=== PATIENT | female | born 1970 | race Caucasian/White ===

== ENCOUNTER 2016-08-16 15:34 | Emergency (ER) | payer OTHER ==
--- NOTE | ~2016-08-16 | EKG ---
PATIENT: DENNISE STEVENSON UNIT #: [id number] Ventricular Rate: 66 BPM Atrial Rate: 66 BPM P-R Interval: 134 ms QRS Duration: 86 ms Q-T Interval: 410 ms QTC Calculation(Bezet): 429 ms P [place]: 32 degrees Calculated R [place]: 11 degrees Calculated T [place]: 16 degrees Diagnosis Line: Normal sinus rhythm Diagnosis Line: Normal ECG Diagnosis Line: When compared with ECG of 18-MAR-2015 19:02, Diagnosis Line: No significant change was found Diagnosis Line: Confirmed by JAYLIN LO MD ([id number]) on Diagnosis Line: 08/19/2016 11:03:14 AM INTERPRETING MD: WALLY MCCLURE
[~2016-08-16 15:34] MED LIST: ALBUTEROL17 GM INH; BENZONATATE; CIPRO PO; COGENTIN1 MG; DESYREL100 MG; GARLIC100 MG PO; GEODON60 MG; MEDROL4 MG/DOSE- PO; MUCINEX DM ER1 EAC1; MULTI VITAMIN1 EACH PO; NEURONTIN PO; PREDNISONE10 MG PO; SEROQUEL PO; TESSALON200 MG PO; VICODIN 5/500 T1 TAB PO; VITAMIN B-625 MG PO; WELLBUTRIN PO; [UNRECOGNIZED DRUG - CODE] PO
[2016-08-16] MEDS ORDERED: NEURONTIN PO (15:39)
== END 2016-08-16 17:49 | disposition home or self-care (01) ==
LOC: SED 15:34
DX: F41.9 Anxiety disorder, unspecified (principal); R03.0 Elevated blood-pressure reading, without diagnosis of hypertension; F31.9 Bipolar disorder, unspecified; F43.10 Post-traumatic stress disorder, unspecified; Z98.51 Tubal ligation status; Z79.899 Other long term (current) drug therapy
CPT/HCPCS: 93005; 99283